=== PATIENT | male | born 1955 | race Caucasian/White ===

== ENCOUNTER 2017-10-14 06:47 | Emergency (ER) | payer SELFPAY ==
[2017-10-14] MEDS: IV NORMAL SALINE 1000ML BAG 1,000 ML IV ×2 (07:12→07:54)
[2017-10-14] MEDS ORDERED: PROPOFOL 0 ML IV (07:16)
[2017-10-14] MEDS ORDERED: SODIUM BICARB ADULT 8.4% 50 MEQ/50 ML DISP.SYRIN. ×5 (07:22→12:00)
[2017-10-14] MEDS: SUCCINYLCHOLINE 200 MG/10 ML VIAL. IV (07:25)
[2017-10-14] MEDS: ETOMIDATE 20 MG/10 ML VIAL. IV (07:25)
[2017-10-14 07:33] LABS: TROPONIN BY ISTAT 0.04 ng/ml (<0.08)
[2017-10-14] MEDS: SODIUM BICARBONATE VIAL 100 MEQ in IV DEXTROSE 5% 1,000 ML IV (07:38)
[2017-10-14] MEDS: SODIUM BICARBONATE IV (07:38)
[2017-10-14] MEDS: NORMAL SALINE IV (07:38)
[2017-10-14] MEDS ORDERED: 0.9 % SODIUM CHLORIDE 10 ML DISP.SYRIN. IV ×2 (07:45→08:00)
[2017-10-14] MEDS ORDERED: MEPERIDINE PF 25 MG/ML VIAL. IV (08:00)
[2017-10-14] MEDS ORDERED: IV NORMAL SALINE 1000ML BAG 1,000 ML IV (08:00)
[2017-10-14] MEDS ORDERED: MINERAL OIL/PETROLATUM,WHITE OPHTH OINT 3.5GM TUBE. OU (08:00)
[2017-10-14] MEDS ORDERED: fentaNYL PF VIAL 100 MCG/2 ML VIAL IV (08:00)
[2017-10-14] MEDS ORDERED: VECURONIUM BOLUS 10 MG VIAL. IV (08:00)
[2017-10-14] MEDS ORDERED: PROPOFOL 100 ML IV (08:00)
[2017-10-14 08:08] LABS: BILIRUBIN,URINE NEGATIVE (NEG); CLARITY,URINE CLOUDY; COLOR,URINE YELLOW; GLUCOSE,URINE 100 mg/dL (NEG); NITRITE,URINE NEGATIVE (NEG); PROTEIN,URINE >=300 mg/dL (NEG-TRACE); UROBILINOGEN,URINE 0.2 mg/dL (0.2 mg/dL)
[2017-10-14 08:10] LABS: BASO % 0 % (0-3); EOS # 0.1 x10^3/uL (0.0-0.7); EOS % 1 % (0-3); HEMATOCRIT 40.1 % (39.0-53.0); HEMOGLOBIN 12.5 g/dL (13.0-17.5); LYMPH # 7.7 x10^3/uL (1.0-4.8); LYMPH % 51 % (24-48); MEAN CORPUSCULAR HEMOGLOBIN 30 pg (25-35); MEAN CORPUSCULAR HGB CONC 31 g/dL (31-37); MEAN CORPUSCULAR VOLUME 97 fL (79-100); MONO # 0.6 x10^3/uL (0.0-1.1); MONO % 4 % (0-9); NEUT # 6.5 x10^3uL (1.8-7.7); NEUT % 44 % (31-73); PLATELET COUNT 164 x10^3/uL (140-400); RED BLOOD COUNT 4.15 x10^6/uL (4.30-5.70); RED CELL DISTRIBUTION WIDTH 15.8 % (11.5-14.5)
[2017-10-14 08:16] LABS: ADD MAN DIFF? YES
[2017-10-14] MEDS: ACETAMINOPHEN 650 MG SUPP.RECT. PR (08:17)
[2017-10-14] MEDS: ASPIRIN 300 MG SUPP.RECT PR (08:17)
[2017-10-14 08:22] LABS: ANION GAP 18 (6-14); BARBITURATES NEG (NEG); BENZODIAZEPINES NEG (NEG); BLOOD UREA NITROGEN 13 mg/dL (8-26); CALCIUM 8.3 mg/dL (8.5-10.1); CANNABINOIDS NEG (NEG); CARBON DIOXIDE 26 mmol/L (21-32); CHLORIDE 102 mmol/L (98-107); COCAINE NEG (NEG); CREATININE 1.1 mg/dL (0.7-1.3); GFR 67.8; GLUCOSE 324 mg/dL (70-99); METHADONE NEG (NEG); OPIATES NEG (NEG); PHENCYCLIDINE NEG (NEG); SODIUM 146 mmol/L (136-145)
[2017-10-14 08:27] LABS: IONIZED CALCIUM 1.09 mmol/L (1.13-1.32)
[2017-10-14 08:27] LABS: TROPONINI 0.042 ng/mL (0.000-0.055)
[2017-10-14 08:28] LABS: ALBUMIN 2.6 g/dL (3.4-5.0); ALK PHOS 70 U/L (46-116); ALT (SGPT) 67 U/L (16-63); AST (SGOT) 56 U/L (15-37); BACTERIA,URINE MODERATE /HPF (0-FEW); DIRECT BILIRUBIN < 0.1 mg/dL (0.0-0.2); LIPASE 149 U/L (73-393); MAGNESIUM 2.3 mg/dL (1.8-2.4); RBC,URINE 20-40 /HPF (0-2); SQUAMOUS EPITHELIAL CELL,UR OCC /LPF; TOTAL BILIRUBIN 0.2 mg/dL (0.2-1.0); TOTAL PROTEIN 5.8 g/dL (6.4-8.2); WBC,URINE OCC /HPF (0-4)
[2017-10-14] MEDS ORDERED: ACETAMINOPHEN 650 MG/20.3 ML SOLUTION. NG (08:30)
[2017-10-14 08:31] LABS: AMPHETAMINE/METHAMPHETAMINE NEG (NEG); ETHANOL, URINE NEG (NEG)
[2017-10-14 08:32] LABS: NT-PRO BNP 2168 pg/mL (0-124)
[2017-10-14 08:32] LABS: CKMB INDEX 1.2 % (0-4); CKMB MASS 2.2 ng/mL (0.0-3.6); CREATINE KINASE 178 U/L (39-308)
[2017-10-14] MEDS ORDERED: FAMOTIDINE 20 MG/2 ML VIAL IVP (09:00)
[2017-10-14 09:11] LABS: LACTIC ACID 11.8 mmol/L (0.4-2.0)
[2017-10-14 12:00] LABS: % BANDS 7 % (0-9); % LYMPHS 50 % (24-48); % METAS 2 % (0-0); % MONOS 3 % (0-10); % MYELOS 3 % (0-0); % SEGS 35 % (35-66); NUCLEATED RBC 1; PLT ESTIMATE ADEQUATE (ADEQUATE)
[2017-10-14] MEDS ORDERED: EPINEPHrine VIAL 30 MG/30 ML VIAL (12:00)
[2017-10-14] MEDS ORDERED: EPINEPHrine SYRINGE 1 MG/10 ML SYRINGE (12:00)
[2017-10-15] MEDS ORDERED: ACETAMINOPHEN 650 MG/20.3 ML SOLUTION. NG (08:00)
[2017-10-16] MEDS ORDERED: ELECTROLYTE (ICU) PROTOCOL. MC (08:00)
== END 2017-10-14 10:00 | disposition expired ==
LOC: ER 06:47
DX: I46.9 Cardiac arrest, cause unspecified (principal); I25.2 Old myocardial infarction; I11.9 Hypertensive heart disease without heart failure; E78.00 Pure hypercholesterolemia, unspecified; J44.9 Chronic obstructive pulmonary disease, unspecified; Z79.82 Long term (current) use of aspirin; F17.210 Nicotine dependence, cigarettes, uncomplicated; Z88.1 Allergy status to other antibiotic agents
CPT/HCPCS: 31500; 36415; 51702; 80048; 80076; 80307; 81001; 82310; 82553; 83605; 83690; 83735; 83880; 84443; 84484; 85007; 85025; 86850; 86900; 86901; 87086; 92950; 93005; 94002; 94640; 96365; 96367; 96375; 99285-25; 99291-25; 99292; J0171; J0330; J7030; J7050